=== PATIENT | female | born 1970 | race African-American/Black ===

== ENCOUNTER → 2023-08-31 07:45 | Outpatient (REF) | payer BC, SELFPAY | LOC: DHCBC/DCA 07:45 | PROVIDERS: ATTENDING PHYSICIAN Internal Medicine Interventional Cardiology; FAMILY PHYSICIAN Family Medicine | DX: R06.09 Other forms of dyspnea (principal); R07.89 Other chest pain | CPT/HCPCS: 78452; 93017; A9500 ==

== ENCOUNTER → 2023-09-28 13:54 | Outpatient (REF) | payer BC, SELFPAY | LOC: DHCBS HW 13:54 | PROVIDERS: ATTENDING PHYSICIAN Internal Medicine Interventional Cardiology; FAMILY PHYSICIAN Family Medicine | DX: R06.09 Other forms of dyspnea (principal); R07.89 Other chest pain | CPT/HCPCS: 93306 ==